=== PATIENT | female | born 1995 | race Caucasian/White ===

== ENCOUNTER 2019-05-15 05:58 | Day surgery (SDC) | payer BC ==
[~2019-05-15] VITALS: Ht 165.1 cm; Wt 56.7 kg
[2019-05-15] VITALS (13 sets, daily range): BP systolic 103–122; BP diastolic 56–73
[2019-05-15] MEDS ORDERED: [UNRECOGNIZED DRUG - OTHER] TP (06:40)
[2019-05-15] MEDS ORDERED: STRATTERA60 MG ORAL (06:40)
[2019-05-15] MEDS ORDERED: ceFAZolin sod 2 GM in NS 55 ML IVPB ONE (07:00)
[2019-05-15] MEDS ORDERED: fentaNYL 100 mcg/2 mL IV ONE (07:14)
[2019-05-15] MEDS ORDERED: Midazolam 2mg/2ml Inj ONE (07:14)
[2019-05-15] MEDS ORDERED: Bupivacaine 0.25% Inj 30ml INJ ONE (07:16)
[2019-05-15] MEDS ORDERED: Muri-Lube ONE (07:16)
[2019-05-15] MEDS ORDERED: Bacitracin Oint 15gm Tube TOPIC ONE (07:16)
[2019-05-15] MEDS ORDERED: Dyna-Hex 2% Top Sol 2oz TOPIC ONE (07:17)
[2019-05-15] MEDS ORDERED: Lidocaine 1% 10mg/ml/Epi 0.005mg/ml 30ml vial INJ ONE (07:17)
[2019-05-15] MEDS ORDERED: Propofol 200mg/20ml IV ONE (07:19)
[2019-05-15] MEDS ORDERED: Lidocaine 1% MPF 10mg/ml 5ml ONE (07:19)
[2019-05-15] MEDS ORDERED: Sodium Chloride 10ml vial INJ ONE ×2 (07:19→08:28)
--- NOTE | 2019-05-15 07:24 | Pre-Procedure Note/Attestation ---
Pre-Procedure Note/Attestation Complete Prior to Procedure Planned Procedure: bilateral Procedure Narrative: mastectomy Indications for Procedure Pre-Operative Diagnosis: gender identity disorder Attestation I attest that I discussed the nature of the procedure; its benefits; risks and complications; and alternatives (and the risks and benefits of such alternatives ), prior to the procedure, with the patient (or the patient's legal personal banking representative). I attest that, if there was a reasonable possibility of needing a blood transfusion, the patient (or the patient's legal personal banking representative) was given the [facility] standardized written summary, pursuant to the Anthony Jennifer Blood Safety Act ([place] Health and Safety Code # 1645, as amended). I attest that I re-evaluated the patient just prior to the surgery and that there has been no change in the patient's H&P, except as documented below: Baljit Erickson MD May 15, 2019 07:24
[2019-05-15] MEDS ORDERED: TransDerm Scop 1mg/72HR Patch TDERMAL ONE ×2 (07:28→08:30)
[2019-05-15] MEDS ORDERED: Zemuron 50mg/5ml Inj IV ONE (07:32)
--- NOTE | 2019-05-15 07:38 | Anethesia Preoperative Eval ---
Anesthesia Pre-op PMH/ROS General Date of Evaluation: May 15, 2019 Time of Evaluation: 07:37 Anesthesiologist: Vivienne ASA Score: ASA 2 Mallampati Score Class I : Soft palate, uvula, fauces, pillars visible Class II: Soft palate, uvula, fauces visible Class III: Soft palate, base of uvula visible Class IV: Only hard plate visible Mallampati Classification: Class II Surgeon: Georgina Diagnosis: Gender dysphoria Surgical Procedure: Bilateral mastectomy Anesthesia History: none Family History: no anesthesia problems Allergies: Coded Allergies: No Known Allergies (Unverified , 05/14/19) Medications: see eMAR Patient NPO?: Yes Past Medical History Cardiovascular: Denies: HTN, CAD, DE, valve dz, arrhythmia, other Pulmonary: Denies: asthma, COPD, EMELINA, other Gastrointestinal/Genitourinary: Denies: GERD, CRI, ESRD, other Neurologic/Psychiatric: Reports: depression/anxiety Endocrine: Denies: DM, hypothyroidism, steroids, other HEENT: Denies: cataract (L), cataract (R), glaucoma, [place] (L), [place] (R), other Hematology/Immune: Denies: anemia, DVT, bleeding disorder, other Musculoskeletal/Integumentary: Denies: OA, RA, DJD, DDD, edema, other PMH Narrative: as above PSxH Narrative: Dental Sx Anesthesia Pre-op Phys. Exam Physician Exam Last Vital Signs Date Time Temp Pulse Resp B/P (MAP) Pulse Ox O2 Delivery O2 Flow Rate FiO2 05/15/19 06:45 Room Air 05/15/19 06:30 98.1 96 20 107/67 100 Constitutional: NAD Neurologic: CN 2-12 intact Cardiovascular: RRR, no M/R/G Respiratory: CTA Gastrointestinal: S/NT/ND Airway Exam Mallampati Score: Class II MO: full Neck: flexible ROM: full Teeth: intact Dentures: no upper, no lower Anesthesia Pre-op A/P Labs see chart Urine Test Test 05/15/19 06:10 Urine HCG, Qualitative Negative (NEGATIVE) Risk Assessment & Plan Assessment: ASA 2 Plan: GA with ETT PONV prevention Status Change Before Surgery: No Pre-Antibiotics Drug: Ancef 1gr Given Within 1 Hr of Incision: Yes Time Given: 08:02 Taurus Palafox MD May 15, 2019 07:38
[2019-05-15] MEDS ORDERED: LR 1000ml ONE (08:00)
[2019-05-15] MEDS ORDERED: Succinylcholine 20mg/ml 10ml vial ONE (08:00)
[2019-05-15] MEDS ORDERED: Sterile Water Irrig 1000ml IRRIG ONE (08:00)
[2019-05-15] MEDS ORDERED: NS Irrig 1000ml ONE (08:00)
[2019-05-15] MEDS ORDERED: Neostigmine 1mg/ml 10ml Inj ONE (08:00)
[2019-05-15] MEDS ORDERED: LR 1000ml 1,000 ML IVLG SCH (08:21)
[2019-05-15] MEDS ORDERED: Morphine Sulfate 10mg/ml Inj ONE (08:28)
[2019-05-15] MEDS ORDERED: Ketorolac 30mg Inj IV PRN (08:30)
[2019-05-15] MEDS ORDERED: Meperidine 50mg/ml Inj(FOR RIGORS ONLY) IV PRN (08:30)
[2019-05-15] MEDS ORDERED: DiphenhydrAMINE 50mg/ml Inj IVP PRN (08:30)
[2019-05-15] MEDS ORDERED: Metoclopramide 10mg/2ml Inj IVP PRN (08:30)
[2019-05-15] MEDS ORDERED: Hydromorphone 0.5mg/0.5ml inj IVP PRN (08:30)
[2019-05-15] MEDS ORDERED: Acetaminophen (Non formulary) 100 ML IV ONE (08:30)
[2019-05-15] MEDS ORDERED: Glycopyrrolate 0.2mg/ml 1ml Vial ONE (08:34)
--- NOTE | 2019-05-15 10:42 | Operative Note - PDOC ---
Operative Note Operative Note Date of Operation/Procedure: May 15, 2019 Pre-op Diagnosis: gender identity disorder Procedure: bilateral mastectomy with NAC reconstruction Post-op Diagnosis: same as pre-op Surgeon: Georgina Additional Surgeons: Gilbert Anesthesiologist: Vivienne Anesthesia: general Specimen: yes Complications: none Condition: stable Estimated Blood Loss: minimal Drains: FRANKIE - x2 Implant(s) used?: No Baljit Erickson MD May 15, 2019 10:42
--- NOTE | 2019-05-15 10:43 | Discharge Instructions ---
Discharge Instructions Discharge Instructions Follow up with: Dr. Erickson 05/21/19 Diet: regular Resume Normal Activity?: Yes Activity: ambulate For Surgical Patients Dressing Care: keep dry and clean May shower: No - sponge bathe only For Congestive Heart Failure Reminder Report to your physician any weight gain of 5 pounds or more in one week. Baljit Erickson MD May 15, 2019 10:43
[2019-05-15] MEDS ORDERED: D5 1/2NS 1,000 ML IV SCH (10:45)
[2019-05-15] MEDS ORDERED: HYDROcodone/Acetamin 5/325 tab ORAL PRN (10:45)
[2019-05-15] MEDS ORDERED: HYDROmorphone 1mg/ml Carpuject SUBQ PRN (10:45)
[2019-05-15] MEDS ORDERED: Tylenol #3 tab (300mg/30mg) ORAL PRN (10:45)
--- NOTE | 2019-05-15 11:00 | Immediate Post-Op Evaluation ---
Immediate Post-Op Evalulation Immediate Post-Op Evalulation Procedure: Bilateral mastectomy with nipple reconstruction Date of Evaluation: May 15, 2019 Time of Evaluation: 10:59 IV Fluids: 1000 Blood Products: none Estimated Blood Loss: 100 Urinary Output: 100 Blood Pressure Systolic: 107 Blood Pressure Diastolic: 71 Pulse Rate: 78 Respiratory Rate: 20 O2 Sat by Pulse Oximetry: 99 Temperature (Fahrenheit): 97.8 Pain Score (1-10): 1 Nausea: No Vomiting: No Complications NONE Patient Status: reacts, patent, extubated, none Hydration Status: adequate Taurus Palafox MD May 15, 2019 11:00
--- NOTE | 2019-05-15 12:33 | 48 Hour Post Anesthesia Eval ---
Post Anesthesia Evaluation Procedure: Bilateral mastectomy with nipple reconstruction Date of Evaluation: May 15, 2019 Time of Evaluation: 12:32 Blood Pressure Systolic: 125 0: 68 Pulse Rate: 72 Respiratory Rate: 18 Temperature (Fahrenheit): 97.6 O2 Sat by Pulse Oximetry: 98 Airway: patent Nausea: No Vomiting: No Pain Intensity: 2 Hydration Status: adequate Cardiopulmonary Status: stable Mental Status/LOC: patient returned to baseline Follow-up Care/Observations: n/a Post-Anesthesia Complications: none Follow-up care needed: ready to discharge Taurus Palafox MD May 15, 2019 12:33
--- NOTE | 2019-05-15 16:45 | Operative Note - Dictated ---
DATE OF OPERATION: 05/15/2019 PREOPERATIVE DIAGNOSIS: Gender identity disorder. POSTOPERATIVE DIAGNOSIS: Gender identity disorder. PROCEDURES: 1. Bilateral mastectomy. 2. Bilateral nipple areola reconstruction with full-thickness nipple areola composite grafts (each graft 2.5 x 2.5 centimeters). SURGEON: Baljit Erickson MD INTEGRATED CAMPAIGN MANAGER: Jose Francisco Hunt M.D. ANESTHESIA: General. ESTIMATED BLOOD LOSS: 50 mL. SPECIMENS: 1. Right breast. 2. Left breast. DRAINS: 15-Moroccan Pancho x2. COMPLICATIONS: None. CONDITION: To recovery room stable. INDICATION FOR PROCEDURE: This is a very pleasant 24-year-old trans-male who desires Top surgery mastectomy as part of his transition. He has the appropriate letter of recommendation from his therapist and meets all WPATH criteria for Top surgery. I have discussed the risks, benefits, and alternatives of the procedure with him including but not limited to bleeding, infection, scarring, nerve injury, asymmetry, contour deformity, hematoma, seroma, loss of nipple sensation, loss of nipple graft, and need for additional surgery including revisions. I discussed the orientation of the incisions and the unpredictable nature of scarring. No guarantees were made regarding the outcome. All of his questions have been answered to the best of my ability. He verbalized understanding with everything that we discussed and wishes to proceed. DESCRIPTION OF PROCEDURE: The patient was identified in the preoperative holding area and marked in the standing position. He was then brought to the operating room where he was placed in the supine position on the operating room table with his arms extended on arm boards. All bony prominences were adequately padded. Sequential compression devices were placed and intravenous antibiotics were administered. After induction of anesthesia, the patient's chest was prepped and draped in sterile fashion. Starting on the left breast first, the nipple-areolar complex was placed on manual stretch and a [place] measuring 2.5 cm in diameter was drawn centered around the nipple. Next, I infiltrated the subdermal plane within the areolar marking using 3 mL of 1% lidocaine with epinephrine. I then used a 15-blade scalpel to incise the areolar marking and then proceeded to harvest a full-thickness nipple areola composite graft. The graft was subsequently defatted wrapped in wet gauze and placed on the back table. I then made the inframammary fold incision using a 10-blade scalpel and dissected down to the level of the pectoralis major fascia. I then made the superior breast incision using a 10-blade scalpel and dissected down to the level of Gilma's fascia. Skin Rakes were used to retract the skin and a plane of dissection was created between the subcutaneous tissue and breast parenchyma heading in a superior direction toward the level of the clavicle. Afterwards, the breast parenchyma was then elevated off of the pectoralis major fascia proceeding from a medial to lateral direction. The specimen was passed off the table. Hemostasis was achieved and the wound was irrigated with saline. I then placed a 15-Moroc[place] Pancho drain within the wound and brought it out through a separate stab incision and secured it using 2-0 silk suture. Skin eunice were then used to temporarily reapproximate the skin. I shifted my attention to the contralateral side where the identical procedure was performed. The patient was then sat up on the operating room table and it appeared that he had very reasonable symmetry between the two sides of his chest. I then used a marking pen to draw out the proposed location of the new nipple areola complex on each side of the chest and these markings were confirmed with direct pressure. He was then placed back in the supine position. On each side of the chest, the skin eunice were removed and closure was performed using interrupted 0 Vicryl suture for the Gilma's fascia layer followed by interrupted 3-0 PDS suture for the deep dermal layer and then a running 3-0 Monocryl subcuticular suture for the skin. Next, I then proceeded with the nipple areola reconstruction portion of procedure. Starting on the left breast first I incised the cameron-areolar marking using a 15 blade scalpel. The intervening skin within the markings was then de-epithelialized. I then brought out the left nipple areola full-thickness graft and then proceeded to inset it into the de-epithelialized area using a running 5-0 fast-absorbing suture. Several 2-0 silk suture ties were placed around the periphery of the full-thickness graft. The skin graft bolster was then fashioned and secured into place directly over the graft using the 2-0 silk suture ties. I then shifted my attention to the contralateral side of the chest where the identical procedure was performed. Next, 10 mL of 0.25% plain Marcaine was injected into the each of the incisions. Steri-Strips and sterile dressings were then applied. The patient tolerated the procedure well and was sent to the recovery room in stable condition. All instrument, sharp, and sponge counts were correct at the conclusion of the case. Baljit Erickson M.D. DR: Christine JOB#: [id number] CC:
== END 2019-05-15 14:55 | disposition home or self-care (01) ==
LOC: SUR 05:58
DX: F64.9 Gender identity disorder, unspecified (principal); F32.9 Major depressive disorder, single episode, unspecified; F41.9 Anxiety disorder, unspecified
CPT/HCPCS: 19303; 19350; 81025; J0330; J0690; J1885; J2250; J2270; J2405; J2704; J2710; J2765; J3010; J3490; 94003; 94150